=== PATIENT | male | born 1955 | race Caucasian/White ===

== ENCOUNTER 2017-03-02 22:36 | Emergency (ER) | payer OTHER ==
[~2017-03-02 22:36] MED LIST: AMLODIPINE BESY10 MG PO; ASPIRIN ADULT L81 M1 PO; CARBAMAZEPINE200 M2 PO; KEPPRA500 MG PO
--- NOTE | 2017-03-03 00:41 | DIAGNOSTIC IMAGING REPORT ---
PROCEDURE: CT HEAD WITHOUT CONTRAST INDICATION: TRAUMA/INJURY TECHNIQUE: Noncontrast axial images with sagittal and coronal reformations. COMPARISON: Compared to a head CT on 03/30/2015. FINDINGS: There is an acute 7 cm x 0.9 cm extra-axial left lateral frontal hematoma (epidural or subdural hematoma, or combination thereof). No evidence of skull fracture. Status post right frontal temporal craniotomy with resection of the anterior temporal lobe. 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 Brain and ventricles are otherwise normal. No evidence of hemorrhage. There is a mildly impacted comminuted left tripod orbital and facial fracture. This is associated moderate fluid and blood in the left maxillary sinus. Sinuses are otherwise normal. IMPRESSION: 1. There is an acute 7 cm x 0.9 cm left frontal extra-axial hematoma (epidural or subdural hematoma, or combination thereof). 2. Status post right frontal temporal craniotomy with resection of the right anterior temporal lobe. 3. Mild old small vessel disease. 4. There is a mildly impacted left facial/orbital tripod fracture. 5.. Findings discussed with Dr. Lj Agrawal at (03/03/2017, 0025 hours). All CT scans at this facility use dose modulation, iterative reconstruction, and/or weight-based dosing when appropriate to reduce radiation dose to as low as reasonably achievable.
--- NOTE | 2017-03-03 01:05 | ED CLINICAL REPORT ---
Clinical Report - Physicians/Mid Levels [facility] [address] [place] [address] 03/02/2017 22:36 Patient: ELIO HERNANDEZ Time Seen: 22:55. Arrived- By ambulance. Historian- patient, EMS personnel and spouse. History limited by intoxication. Physical Exam limited by intoxication. HISTORY OF PRESENT ILLNESS Location of injuries- head. Chief Complaint: FALL. The injury occurred today. Occurred at home. Fell and landed on a hard surface; lost balance. The patient denies pain and complains of mild pain. The patient sustained a blow to the head and had uncertain duration loss of consciousness. REVIEW OF SYSTEMS No chills, fever, sweats, calf pain or chest pain. No cough, difficulty breathing, pedal edema, palpitations or abdominal pain. No constipation, diarrhea, nausea, vomiting or urinary problems. All systems otherwise negative, except as recorded above. 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 Tetanus immunization status is unknown. Problems: Depression. Hepatitis. Cancer. Seizure. Hypertension. Additional Surgeries: Brain surgery x2. Kidney removal. Tonsillectomy. Medications: Melatonin Oral. ASA Oral 81 mg, daily. AmLODIPine Besylate Oral (Tablet 5 mg) 1 tablet, daily. CarBAMazepine ER Oral (Capsule Extended Release 12 Hour 200 mg) 1 capsule, Twice Daily. LevETIRAcetam Oral (Tablet 1000 mg) 1 tablet, 2x a day. Allergies: No Known Drug Allergy. SOCIAL HISTORY Heavy alcohol use; consumes a large amount of liquor daily. Last drink was just prior to arrival. Patient is a longstanding alcoholic. Under the influence in E.D. He lives with spouse. FAMILY HISTORY Denies family medical history. ADDITIONAL NOTES The nursing notes have been reviewed. PHYSICAL EXAM Vital Signs: 03/02/2017 22:48 BP: 141/80. HR: 87. RR: 18. O2 saturation: 99%. Temp: 98 F. Pain level now: 0/10. Have been reviewed. Appearance: Alert. Head: Forehead: multiple small abrasions. Eyes: Pupils equal, round and reactive to light. EOM intact. Left periorbital area: moderate swelling, subcutaneous 1.5 cm horizontal laceration and small ecchymosis of the lateral aspect and supraorbital area of the periorbital area. SEE LACERATION PROCEDURE NOTE #1. No entrapment of extraocular muscles or gaze palsy. ENT: No dental injury. Pharynx normal. Neck: Painless ROM. Non-tender. No vertebral tenderness. CVS: Heart sounds normal. Respiratory: Breath sounds normal. Abdomen: No visible injury. Soft and nontender. Bowel sounds normal. No organomegaly. No mass. Skin: Skin warm and dry. Extremities: Pelvis stable. No lower extremity edema. LABS, X-RAYS, AND EKG CT Head: There is sinus opacification involving the left maxillary sinus. (surgical changes R L extra axial bleed - epidural vs subdural). The study was interpreted contemporaneously by me and discussed with the radiologist. Laboratory Tests: CBC w Diff: (MANJINDER: 03/02/2017 23:20) ( [facility] 03/02/2017 23:37) Final results Test Result Flag Units (Reference) WHITE BLOOD COUNT 9.5 K/uL (4.5-11.5) RED BLOOD COUNT 4.49 L M/uL (4.50-5.90) HEMOGLOBIN 14.3 gm/dL (13.5-17.5) HEMATOCRIT 43.8 % (41.0-53.0) MEAN CELL VOLUME 98 fL (80-100) MEAN CORPUSCULAR HGB 32 pg (26-34) MEAN CORPUSCULAR HGB CONC 33 g/dL (31-37) RED CELL DISTRIBUTION WIDTH 14.0 % (11.6-14.8) PLATELET COUNT 287 K/uL (150-400) LYMPH % 15.5 L % (25-40) MONO % 7.8 % (3-14) GRANULOCYTE % 76.7 PT with INR: (MANJINDER: 03/02/2017 23:20) ( [facility] 03/02/2017 23:45) Final results Test Result Flag Units (Reference) INR 0.9 (0.8-1.2) Low Intensity Therapy: INR 1.5-2.0 PT range 18.5-23.1Mod.Intensity Therapy: INR 2.0-3.0 PT range 23.1-31.5High Intensity Therapy: INR 2.5-3.5 PT range 27.4-35.5High Intensity Therapy 2: INR 3.0-4.0 PT range 31.5-39.3 APTT 26 SECONDS (24-34) [id number]: (MANJINDER: 03/02/2017 23:20) ( RigRcvd 03/03/2017 00:02) Final results Test Result Flag Units (Reference) CARBAMAZEPINE/TEGRETOL 7.2 ug/mL (4.0-12.0) CMP: (MANJINDER: 03/02/2017 23:20) ( RigRcvd 03/02/2017 23:49) Final results Test Result Flag Units (Reference) GLUCOSE 116 H mg/dL (70-110) BUN 12 mg/dL (7-18) CREATININE 0.8 mg/dL (0.6-1.3) Estimated GFR >60 mL/min Estimated GFR- >60 mL/min Note: Persistent reduction over 3 months in eGFR<60 mL/min/1.73 m2 defines CKD. Patients with eGFR values>=60 mL/min/1.73 m2 may also have CKD if evidence ofpersistent proteinuria. Additional information may be foundat [email or web address]. SODIUM 142 mmol/L (136-145) POTASSIUM 4.4 mmol/L (3.5-5.1) CHLORIDE 105 mmol/L (98-107) CARBON DIOXIDE 26 mmol/L (21-32) CALCIUM 8.5 mg/dL (8.5-10.1) TOTAL PROTEIN 7.9 g/dL (6.4-8.2) ALBUMIN 3.3 g/dL (3.3-5.0) BILIRUBIN, TOTAL 0.6 mg/dL (0.0-1.0) ALKALINE PHOSPHATASE 118 H U/L (46-116) AST (SGOT) 141 H U/L (15-37) ALT (SGPT) 207 H U/L (12-78) LIPASE 397 H U/L (73-393) AMYLASE 62 U/L (25-115) ETHYL ALCOHOL 151 H mg/dL (3-10) . PROGRESS AND PROCEDURES Laceration Repair: Location: left eyebrow and left cheek. Time-out completed immediately before the procedure. Length: 2.0cm. Complexity: simple (closed with tissue adhesive). Distal neuro/vascular/tendon status normal. Prepped with Hibiclens. Wound explored and cleansed. Closure of superficial layer. Skin adhesive used. Post-procedure: he is stable and there are no complications. Bleeding is controlled and neuro-vascular status is intact distal to the wound. Tetanus immunization given. Course of Care: Case was discussed with the controlling physician at [facility]. He reports that none of their facilities will be able to manage this patient. Therefore he recommends the patient be transferred to [facility]. Patient is stable. Consult obtained. Dr. Borjas - Trauma / ER at [facility]. Case discussed. Phone consult only. Will see patient in the hospital. Patient/family counseled. Old medical records ordered. Disposition: Transferred. CLINICAL IMPRESSION Head injury. (acute 7 cm x 0.9 cm left frontal extra-axial hematoma (epidural or subdural hematoma, or combination thereof).). Alcoholic liver disease. Superficial laceration to the left periorbital area. Facial fracture (mildly impacted left facial/orbital tripod fracture.). Laceration. Alcohol intoxication. Superficial laceration to left eyebrow. (Electronically signed by Lj Agrawal MD 03/03/2017 9:40)
--- NOTE | 2017-03-03 01:05 | ED CLINICAL REPORT ---
Clinical Report - Physicians/Mid Levels [facility] [address] [place] [address] 03/02/2017 22:36 Patient: ELIO HERNANDEZ Time Seen: 22:55. Arrived- By ambulance. Historian- patient, EMS personnel and spouse. History limited by intoxication. Physical Exam limited by intoxication. HISTORY OF PRESENT ILLNESS Location of injuries- head. Chief Complaint: FALL. The injury occurred today. Occurred at home. Fell and landed on a hard surface; lost balance. The patient denies pain and complains of mild pain. The patient sustained a blow to the head and had uncertain duration loss of consciousness. REVIEW OF SYSTEMS No chills, fever, sweats, calf pain or chest pain. No cough, difficulty breathing, pedal edema, palpitations or abdominal pain. No constipation, diarrhea, nausea, vomiting or urinary problems. All systems otherwise negative, except as recorded above. 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 Tetanus immunization status is unknown. Problems: Depression. Hepatitis. Cancer. Seizure. Hypertension. Additional Surgeries: Brain surgery x2. Kidney removal. Tonsillectomy. Medications: Melatonin Oral. ASA Oral 81 mg, daily. AmLODIPine Besylate Oral (Tablet 5 mg) 1 tablet, daily. CarBAMazepine ER Oral (Capsule Extended Release 12 Hour 200 mg) 1 capsule, Twice Daily. LevETIRAcetam Oral (Tablet 1000 mg) 1 tablet, 2x a day. Allergies: No Known Drug Allergy. SOCIAL HISTORY Heavy alcohol use; consumes a large amount of liquor daily. Last drink was just prior to arrival. Patient is a longstanding alcoholic. Under the influence in E.D. He lives with spouse. FAMILY HISTORY Denies family medical history. ADDITIONAL NOTES The nursing notes have been reviewed. PHYSICAL EXAM Vital Signs: 03/02/2017 22:48 BP: 141/80. HR: 87. RR: 18. O2 saturation: 99%. Temp: 98 F. Pain level now: 0/10. Have been reviewed. Appearance: Alert. Head: Forehead: multiple small abrasions. Eyes: Pupils equal, round and reactive to light. EOM intact. Left periorbital area: moderate swelling, subcutaneous 1.5 cm horizontal laceration and small ecchymosis of the lateral aspect and supraorbital area of the periorbital area. SEE LACERATION PROCEDURE NOTE #1. No entrapment of extraocular muscles or gaze palsy. ENT: No dental injury. Pharynx normal. Neck: Painless ROM. Non-tender. No vertebral tenderness. CVS: Heart sounds normal. Respiratory: Breath sounds normal. Abdomen: No visible injury. Soft and nontender. Bowel sounds normal. No organomegaly. No mass. Skin: Skin warm and dry. Extremities: Pelvis stable. No lower extremity edema. LABS, X-RAYS, AND EKG CT Head: There is sinus opacification involving the left maxillary sinus. (surgical changes R L extra axial bleed - epidural vs subdural). The study was interpreted contemporaneously by me and discussed with the radiologist. Laboratory Tests: CBC w Diff: (MANJINDER: 03/02/2017 23:20) ( [facility] 03/02/2017 23:37) Final results Test Result Flag Units (Reference) WHITE BLOOD COUNT 9.5 K/uL (4.5-11.5) RED BLOOD COUNT 4.49 L M/uL (4.50-5.90) HEMOGLOBIN 14.3 gm/dL (13.5-17.5) HEMATOCRIT 43.8 % (41.0-53.0) MEAN CELL VOLUME 98 fL (80-100) MEAN CORPUSCULAR HGB 32 pg (26-34) MEAN CORPUSCULAR HGB CONC 33 g/dL (31-37) RED CELL DISTRIBUTION WIDTH 14.0 % (11.6-14.8) PLATELET COUNT 287 K/uL (150-400) LYMPH % 15.5 L % (25-40) MONO % 7.8 % (3-14) GRANULOCYTE % 76.7 PT with INR: (MANJINDER: 03/02/2017 23:20) ( [facility] 03/02/2017 23:45) Final results Test Result Flag Units (Reference) INR 0.9 (0.8-1.2) Low Intensity Therapy: INR 1.5-2.0 PT range 18.5-23.1Mod.Intensity Therapy: INR 2.0-3.0 PT range 23.1-31.5High Intensity Therapy: INR 2.5-3.5 PT range 27.4-35.5High Intensity Therapy 2: INR 3.0-4.0 PT range 31.5-39.3 APTT 26 SECONDS (24-34) [id number]: (MANJINDER: 03/02/2017 23:20) ( Tng[facility]cvd 03/03/2017 00:02) Final results Test Result Flag Units (Reference) CARBAMAZEPINE/TEGRETOL 7.2 ug/mL (4.0-12.0) CMP: (MANJINDER: 03/02/2017 23:20) ( TngRcvd 03/02/2017 23:49) Final results Test Result Flag Units (Reference) GLUCOSE 116 H mg/dL (70-110) BUN 12 mg/dL (7-18) CREATININE 0.8 mg/dL (0.6-1.3) Estimated GFR >60 mL/min Estimated GFR- >60 mL/min Note: Persistent reduction over 3 months in eGFR<60 mL/min/1.73 m2 defines CKD. Patients with eGFR values>=60 mL/min/1.73 m2 may also have CKD if evidence ofpersistent proteinuria. Additional information may be foundat [email or web address]. SODIUM 142 mmol/L (136-145) POTASSIUM 4.4 mmol/L (3.5-5.1) CHLORIDE 105 mmol/L (98-107) CARBON DIOXIDE 26 mmol/L (21-32) CALCIUM 8.5 mg/dL (8.5-10.1) TOTAL PROTEIN 7.9 g/dL (6.4-8.2) ALBUMIN 3.3 g/dL (3.3-5.0) BILIRUBIN, TOTAL 0.6 mg/dL (0.0-1.0) ALKALINE PHOSPHATASE 118 H U/L (46-116) AST (SGOT) 141 H U/L (15-37) ALT (SGPT) 207 H U/L (12-78) LIPASE 397 H U/L (73-393) AMYLASE 62 U/L (25-115) ETHYL ALCOHOL 151 H mg/dL (3-10) . PROGRESS AND PROCEDURES Laceration Repair: Location: left eyebrow and left cheek. Time-out completed immediately before the procedure. Length: 2.0cm. Complexity: simple (closed with tissue adhesive). Distal neuro/vascular/tendon status normal. Prepped with Hibiclens. Wound explored and cleansed. Closure of superficial layer. Skin adhesive used. Post-procedure: he is stable and there are no complications. Bleeding is controlled and neuro-vascular status is intact distal to the wound. Tetanus immunization given. Course of Care: Case was discussed with the controlling physician at [facility]. He reports that none of their facilities will be able to manage this patient. Therefore he recommends the patient be transferred to [facility]. Patient is stable. Consult obtained. Dr. Borjas - Trauma / ER at [facility]. Case discussed. Phone consult only. Will see patient in the hospital. Patient/family counseled. Old medical records ordered. Disposition: Transferred. CLINICAL IMPRESSION Head injury. (acute 7 cm x 0.9 cm left frontal extra-axial hematoma (epidural or subdural hematoma, or combination thereof).). Alcoholic liver disease. Superficial laceration to the left periorbital area. Facial fracture (mildly impacted left facial/orbital tripod fracture.). Laceration. Alcohol intoxication. Superficial laceration to left eyebrow. (Electronically signed by Lj Agrawal MD 03/03/2017 9:40)
--- NOTE | 2017-03-03 01:06 | ED NURSING NOTES ---
Clinical Report - Nurses [facility] [address] [place] [address] 03/02/2017 22:36 Patient: ELIO HERNANDEZ TRIAGE Triage time 22:48. Acuity: LEVEL 3. Chief Complaint: FALL while walking. Alert. ALEJANDRO COMA SCORE: Alejandro Coma Scale: 14- eyes open spontaneously (4); best verbal response- disoriented (4); best motor response- obeys commands (6). --22:56 Genesis Stevenson R.N. 22:48 03/02/17. BP: 141/80. HR: 87. RR: 18. O2 saturation: 99% on room air. Temp: 98 F. Pain level now: 0/10. --22:56 Genesis Stevenson R.N. Weight: 72.5 kg stated. Height/Length: 72 inches Per Patient. BMI: 21.7. --22:54 Genesis Stevenson R.N. Medications AmLODIPine Besylate Oral (Tablet 5 mg) 1 tablet, daily. CarBAMazepine ER Oral (Capsule Extended Release 12 Hour 200 mg) 1 capsule, Twice Daily. LevETIRAcetam Oral (Tablet 1000 mg) 1 tablet, 2x a day. --22:51 Genesis Stevenson R.N. ASA Oral 81 mg, daily. --22:52 Genesis Stevenson R.N. Melatonin Oral. --22:52 Genesis Stevenson R.N. Allergies No Known Drug Allergy. --22:51 Genessi Stevenson R.N. History Arrived by private vehicle. Primary physician (Yocasta). ( reports pt has been drinking heavily for past few weeks and has had repeated falls. Today reports that she was at work and came home around 1800 & at 2000 she noticed that he had blood on face and left eye was swollen so she brought him in.). This occurred today. SOCIAL HX: Heavy tobacco smoker (cigarette)- less than 1 pack per day. Heavy alcohol use. --22:56 Genesis Stevenson R.N. PROBLEMS: Cancer. Hypertension. Seizure. --22:52 Genesis Stevenson R.N. Depression. Hepatitis. --22:53 Genesis Stevenson R.N. Interventions ID band on patient. To treatment room. --22:56 Genesis Stevenson R.N. PHYSICAL ASSESSMENT To room via wheelchair. Patient gowned. GENERAL / NEURO / PSYCH: Alert. Appears in no acute distress. The patient is disoriented to time. HEENT: Head: laceration present in the left forehead. RESPIRATORY: Respirations not labored. CVS: Capillary refill less than 2 seconds. SKIN: Skin is warm and dry. --22:57 Genesis Stevenson R.N. NURSING PROGRESS NOTES Two patient identifiers checked. Call light placed in reach. Side rails up x 1. Bed placed in lowest position. Brakes of bed on. --:57 Genesis Stevenson R.N. Patient ready for evaluation- chart flagged. --22:57 Genesis Stevenson R.N. ( pt states "I have brain cancer so I fall a lot", pt asked if he thinks its the cancer causing the falls or the alcohol. pt replies with "oh, yeah, probably the alcohol". Pt denies falls while sober.). --23:00 Genesis Stevenson R.N. 23:15. Wound cleansed with sterile water and chlorhexidine. --23:31 Ariadne Fernandez 23:20 03/02/2017 Site #1 started via IV in the right antecubital space with an 20g angiocath, with aseptic technique and good blood return; one attempt. Blood drawn: rainbow set. Labeled in the presence of the patient and sent to the lab. Saline lock flushed with 10 mL saline. --23:32 Fern Herman R.N. 23:28 03/02/2017 Started bag #1 1000 mL IV Fluids IV NS (Saline); at 500 mL/hr over 1 hour(s) via site #1 via IV pump. Allergies verified and confirmed 5 rights. IV patency established. IV site checked: no pain, redness, or swelling. IV flushed thoroughly pre- and post-medication administration. --23:34 Fern Herman R.N. Patient transported to [place] by stretcher with tech. --23:47 Genesis Stevenson R.N. 00:01 03/03/2017 TDAP IM 0.5 mL given. (Lot#: [id number], expiration date: 01/29/2019, Ict Trainer: [employer]). Given in the right deltoid. Allergies verified and confirmed 5 rights. Vaccine information statement provided to the patient. --00:03 Genesis Stevenson R.N. 00:01 03/03/2017 IV Fluids IV NS via IV site #1 Rate Changed: bag #1 increased to 999 mL/hr via IV pump. IV patency established. IV site checked: no pain, redness, or swelling. IV flushed thoroughly. Confirmed 5 Rights. --00:05 Genesis Stevenson R.N. 00:19 03/03/2017 IV Fluids IV NS via IV site #1 Rate Changed: bag #1 decreased to 125 mL/hr via IV pump. IV patency established. IV site checked: no pain, redness, or swelling. IV flushed thoroughly. Confirmed 5 Rights (500ml bolus complete.). --00:19 Genesis Stevenson R.N. ( images pushed to boni hernandez, facesheet faxed). --00:55 Silvia Cavanaugh ( pt given urinal, per request to use restroom. Pt's at bedside to assist.). --01:52 Genesis Stevenson R.N. 02:23 03/03/17. BP: 148/73. HR: 79. RR: 15. O2 saturation: 100% on room air. --02:26 Genesis Stevenson R.N. Ambulance transport form signed (signed by , per pts request.). --02:33 Genesis Stevenson R.N. Patient ID band checked for patient name and birthdate: patient confirmed urine collected with return of nancy-colored urine; sample sent to lab. Specimen labeled in the presence of the patient. --02:59 Genesis Stevenson R.N. 03:00 03/03/2017 IV Fluids IV NS Discontinued: bag #1 discontinued upon transfer. Total amount infused: 800 mL. IV patency established. IV site checked: no pain, redness, or swelling. IV flushed thoroughly. --03:01 Genesis Stevenson R.N. DISPOSITION / DISCHARGE 02:44 03/03/17. BP: 143/79. HR: 82. RR: 15. O2 saturation: 95% on room air. Pain level now: 0/10. --02:44 Genesis Stevenson R.N. Report was given via a fax. Report included patient's care, treatment, medications, reviewed medication reconcilliation, and condition (including any recent changes or anticipated changes). (to [facility]). --02:45 Genesis Stevenson R.N. Transferred to [facility]. Summary of care provided to transport team and EMS via paper. --02:59 Genesis Stevenson R.N. 03:05 03/03/2017 Site #[address] upon transfer. Flushed with 10 mL saline; flushes easily. --03:05 Genesis Stevenson R.N. Departure time: 03:12. --03:12 Genesis Stevenson R.N. Locked/Released at 03/03/2017 4:51 by Genesis Stevenson R.N.
--- NOTE | 2017-03-03 01:06 | ED ORDER SUMMARY ---
..... Patient: ELIO HERNANDEZ OrderSheet [facility] VisitID: [id number] [place] [address] 61y, M Registration Date/Time: 03/02/2017 ORDER SHEET Weight: 72.5 kg (stated) Allergies: No Known Drug Allergy GENERAL ORDERS: CT Head wo Cont Urgent (23:18 03/02/2017 Tnoi BAÑUELOS) (Ack 23:19 LMuller) (0:03 RCollier R.N.) CBC w Diff Urgent (23:18 03/02/2017 Toni BAÑUELOS) (Ack 23:19 LMuller) (23:31 CBradburn R.N.) CMP Urgent (23:18 03/02/2017 Toni BAÑUELOS) (Ack 23:19 LMuller) (23:31 CBradburn R.N.) PT with INR Urgent (23:18 03/02/2017 Toni BAÑUELOS) (Ack 23:19 LMuller) (23:31 CBradburn R.N.) PTT Urgent (23:18 03/02/2017 Toni BAÑUELOS) (Ack 23:19 LMuller) (23:31 CBradburn R.N.) Amylase Urgent (23:18 03/02/2017 Toni BAÑUELOS) (Ack 23:19 LMuller) (23:31 CBradburn R.N.) Lipase Urgent (23:18 03/02/2017 Toni BAÑUELOS) (Ack 23:19 LMuller) (23:31 CBradburn R.N.) Ethyl Alcohol Urgent (23:18 03/02/2017 Toni BAÑUELOS) (Ack 23:19 LMuller) (23:31 ELISEradburn R.N.) Carbamazepine (Tegretol) Urgent (23:49 03/02/2017 Toni BAÑUELOS) (0:19 RCollier R.N.) MEDICATION ORDERS: Tdap IM 0.5 mL (NOW) (23:48 03/02/2017 Toni BAÑUELOS) (Ack 23:51 RCollier R.N.) (0:03 RCollier R.N.) IV FLUIDS: IV NS with Folic Acid 1 mg/L, Multivitamin Concentrate Intravenous 1 amp/L, Thiamine HCl 100 mg/L: initial bolus 500 mL (1000 mL/hr), then 125 mL/hr for 4h (NOW); Urgent (23:17 03/02/2017 Toni BAÑUELOS) (Ack 23:18 Gaye East) (23:34 Jules East) ORDER SHEET NOTES: [Electronically signed by Genesis Stevenson R.N. (04:51 03/03/2017)] [Electronically signed by Lj Agrawal MD (09:40 03/03/2017)] [Electronically locked/signed by Genesis Stevenson R.N. (04:51 03/03/2017)]
--- NOTE | 2017-03-03 01:06 | ED ORDER SUMMARY ---
..... Patient: ELIO HERNANDEZ OrderSheet [facility] VisitID: [id number] [place] [address] 61y, M Registration Date/Time: 03/02/2017 ORDER SHEET Weight: 72.5 kg (stated) Allergies: No Known Drug Allergy GENERAL ORDERS: CT Head wo Cont Urgent (23:18 03/02/2017 Toni BAÑUELOS) (Ack 23:19 LMuller) (0:03 RCollier R.N.) CBC w Diff Urgent (23:18 03/02/2017 Toni BAÑUELOS) (Ack 23:19 LMuller) (23:31 CBradburn R.N.) CMP Urgent (23:18 03/02/2017 Toni BAÑUELOS) (Ack 23:19 LMuller) (23:31 CBradburn R.N.) PT with INR Urgent (23:18 03/02/2017 Toni BAÑUELOS) (Ack 23:19 LMuller) (23:31 CBradburn R.N.) PTT Urgent (23:18 03/02/2017 Toni BAÑUELOS) (Ack 23:19 LMuller) (23:31 CBradburn R.N.) Amylase Urgent (23:18 03/02/2017 Toni BAÑUELOS) (Ack 23:19 LMuller) (23:31 CBradburn R.N.) Lipase Urgent (23:18 03/02/2017 Toni BAÑUELOS) (Ack 23:19 LMuller) (23:31 CBradburn R.N.) Ethyl Alcohol Urgent (23:18 03/02/2017 Toni BAÑUELOS) (Ack 23:19 LMuller) (23:31 ELISEradburn R.N.) Carbamazepine (Tegretol) Urgent (23:49 03/02/2017 Toni BAÑUELOS) (0:19 RCollier R.N.) MEDICATION ORDERS: Tdap IM 0.5 mL (NOW) (23:48 03/02/2017 Toni BAÑUELOS) (Ack 23:51 RCollier R.N.) (0:03 RCollier R.N.) IV FLUIDS: IV NS with Folic Acid 1 mg/L, Multivitamin Concentrate Intravenous 1 amp/L, Thiamine HCl 100 mg/L: initial bolus 500 mL (1000 mL/hr), then 125 mL/hr for 4h (NOW); Urgent (23:17 03/02/2017 Toni BAÑUELOS) (Ack 23:18 Gaye East) (23:34 Jules East) ORDER SHEET NOTES: [Electronically signed by Genesis Stevenson R.N. (04:51 03/03/2017)] [Electronically signed by Lj Agrawal MD (09:40 03/03/2017)] [Electronically locked/signed by Genesis Stevenson R.N. (04:51 03/03/2017)]
--- NOTE | 2017-03-03 01:06 | ED NURSING NOTES ---
Clinical Report - Nurses [facility] [address] [place] [address] 03/02/2017 22:36 Patient: LEIO HERNANDEZ TRIAGE Triage time 22:48. Acuity: LEVEL 3. Chief Complaint: FALL while walking. Alert. ALEJANDRO COMA SCORE: Alejandro Coma Scale: 14- eyes open spontaneously (4); best verbal response- disoriented (4); best motor response- obeys commands (6). --22:56 Genesis Stevenson R.N. 22:48 03/02/17. BP: 141/80. HR: 87. RR: 18. O2 saturation: 99% on room air. Temp: 98 F. Pain level now: 0/10. --22:56 Genesis Stevenson R.N. Weight: 72.5 kg stated. Height/Length: 72 inches Per Patient. BMI: 21.7. --22:54 Genesis Stevenson R.N. Medications AmLODIPine Besylate Oral (Tablet 5 mg) 1 tablet, daily. CarBAMazepine ER Oral (Capsule Extended Release 12 Hour 200 mg) 1 capsule, Twice Daily. LevETIRAcetam Oral (Tablet 1000 mg) 1 tablet, 2x a day. --22:51 Genesis Stevenson R.N. ASA Oral 81 mg, daily. --22:52 Genesis Stevenson R.N. Melatonin Oral. --22:52 Genesis Stevenson R.N. Allergies No Known Drug Allergy. --22:51 Gneesis Stevenson R.N. History Arrived by private vehicle. Primary physician (Yocasta). ( reports pt has been drinking heavily for past few weeks and has had repeated falls. Today reports that she was at work and came home around 1800 & at 2000 she noticed that he had blood on face and left eye was swollen so she brought him in.). This occurred today. SOCIAL HX: Heavy tobacco smoker (cigarette)- less than 1 pack per day. Heavy alcohol use. --22:56 Genesis Stevenson R.N. PROBLEMS: Cancer. Hypertension. Seizure. --22:52 Genesis Stevenson R.N. Depression. Hepatitis. --22:53 Genesis Stevenson R.N. Interventions ID band on patient. To treatment room. --22:56 Genesis Stevenson R.N. PHYSICAL ASSESSMENT To room via wheelchair. Patient gowned. GENERAL / NEURO / PSYCH: Alert. Appears in no acute distress. The patient is disoriented to time. HEENT: Head: laceration present in the left forehead. RESPIRATORY: Respirations not labored. CVS: Capillary refill less than 2 seconds. SKIN: Skin is warm and dry. --22:57 Genesis Stevenson R.N. NURSING PROGRESS NOTES Two patient identifiers checked. Call light placed in reach. Side rails up x 1. Bed placed in lowest position. Brakes of bed on. --:57 Genesis Stevenson R.N. Patient ready for evaluation- chart flagged. --22:57 Genesis Stevenson R.N. ( pt states "I have brain cancer so I fall a lot", pt asked if he thinks its the cancer causing the falls or the alcohol. pt replies with "oh, yeah, probably the alcohol". Pt denies falls while sober.). --23:00 Genesis Stevenson R.N. 23:15. Wound cleansed with sterile water and chlorhexidine. --23:31 Ariadne Fernandez 23:20 03/02/2017 Site #1 started via IV in the right antecubital space with an 20g angiocath, with aseptic technique and good blood return; one attempt. Blood drawn: rainbow set. Labeled in the presence of the patient and sent to the lab. Saline lock flushed with 10 mL saline. --23:32 Fern Herman R.N. 23:28 03/02/2017 Started bag #1 1000 mL IV Fluids IV NS (Saline); at 500 mL/hr over 1 hour(s) via site #1 via IV pump. Allergies verified and confirmed 5 rights. IV patency established. IV site checked: no pain, redness, or swelling. IV flushed thoroughly pre- and post-medication administration. --23:34 Fern Herman R.N. Patient transported to [place] by stretcher with tech. --23:47 Genesis Stevenson R.N. 00:01 03/03/2017 TDAP IM 0.5 mL given. (Lot#: [id number], expiration date: 01/29/2019, [employer]: [employer]). Given in the right deltoid. Allergies verified and confirmed 5 rights. Vaccine information statement provided to the patient. --00:03 Genesis Stevenson R.N. 00:01 03/03/2017 IV Fluids IV NS via IV site #1 Rate Changed: bag #1 increased to 999 mL/hr via IV pump. IV patency established. IV site checked: no pain, redness, or swelling. IV flushed thoroughly. Confirmed 5 Rights. --00:05 Genesis Stevenson R.N. 00:19 03/03/2017 IV Fluids IV NS via IV site #1 Rate Changed: bag #1 decreased to 125 mL/hr via IV pump. IV patency established. IV site checked: no pain, redness, or swelling. IV flushed thoroughly. Confirmed 5 Rights (500ml bolus complete.). --00:19 Genesis Stevenson R.N. ( images pushed to boni hernandez, facesheet faxed). --00:55 Silvia Cavanaugh ( pt given urinal, per request to use restroom. Pt's at bedside to assist.). --01:52 Genesis Stevenson R.N. 02:23 03/03/17. BP: 148/73. HR: 79. RR: 15. O2 saturation: 100% on room air. --02:26 Genesis Stevenson R.N. Ambulance transport form signed (signed by , per pts request.). --02:33 Genesis Stevenson R.N. Patient ID band checked for patient name and birthdate: patient confirmed urine collected with return of nancy-colored urine; sample sent to lab. Specimen labeled in the presence of the patient. --02:59 Genesis Stevenson R.N. 03:00 03/03/2017 IV Fluids IV NS Discontinued: bag #1 discontinued upon transfer. Total amount infused: 800 mL. IV patency established. IV site checked: no pain, redness, or swelling. IV flushed thoroughly. --03:01 Genesis Stevenson R.N. DISPOSITION / DISCHARGE 02:44 03/03/17. BP: 143/79. HR: 82. RR: 15. O2 saturation: 95% on room air. Pain level now: 0/10. --02:44 Genseis Stevenson R.N. Report was given via a fax. Report included patient's care, treatment, medications, reviewed medication reconcilliation, and condition (including any recent changes or anticipated changes). (to [facility]). --02:45 Genesis Stevenson R.N. Transferred to [facility]. Summary of care provided to transport team and EMS via paper. --02:59 Genesis Stevenson R.N. 03:05 03/03/2017 Site #[address] upon transfer. Flushed with 10 mL saline; flushes easily. --03:05 Genesis Stevenson R.N. Departure time: 03:12. --03:12 Genesis Stevenson R.N. Locked/Released at 03/03/2017 4:51 by Genesis Stevenson R.N.
--- NOTE | 2017-03-03 09:41 | ED DISCHARGE INSTRUCTIONS ---
Patient: ELIO HERNANDEZ General Instructions [facility] VisitID: [id number] [address] [place] [address] 61y, M Registration Date/Time: 03/02/2017 Head injury. (acute 7 cm x 0.9 cm left frontal extra-axial hematoma (epidural or subdural hematoma, or combination thereof).). Alcoholic liver disease. Superficial laceration to the left periorbital area. Facial fracture (mildly impacted left facial/orbital tripod fracture.). Laceration. Alcohol intoxication. Superficial laceration to left eyebrow. (Electronically signed by jL Agrawal MD 03/03/2017 9:40)
--- NOTE | 2017-03-03 09:41 | ED MAR SUMMARY ---
..... Medication Administration Record [facility] [address] [place] [address] Patient: ELIO HERNANDEZ Visit ID: [id number] 61y, M Weight: 72.5 kg Height/Length: 72 in BMI: 21.7 ALLERGIES: No Known Drug Allergy Start 23:28 03/02/2017 Fern Herman R.N., Stop 03:00 03/03/2017 Genesis Stevenson R.N. Medication Administered: IV NS (SALINE), Dose: IV Fluids over 1 hour(s), Rate: 500 mL/hr, Dispensed: 1000 mL bag, Site: #1 right AC. Medication Ordered: IV NS with Folic Acid 1 mg/L, Multivitamin Concentrate Intravenous 1 amp/L, Thiamine HCl 100 mg/L: initial bolus 500 mL (1000 mL/hr), then 125 mL/hr for 4h (NOW); Urgent. Given 00:01 03/03/2017 Genesis Stevenson R.N. Medication Administered: TDAP [IM], Dose: 0.5 mL IM. Medication Ordered: Tdap IM 0.5 mL (NOW).
--- NOTE | 2017-03-03 09:41 | ED MED RECONCILIATION SUMMARY ---
Patient: ELIO HERNANDEZ Medication Reconciliation Report [facility] VisitID: [id number] [place] [address] 61y, M Registration Date/Time: 03/02/2017 Weight: 72.5 kg Height/Length: 72 in. BMI: 21.7 ALLERGIES: No Known Drug Allergy The patient's Home Medications are listed below: THE FOLLOWING MEDICATIONS NEED TO BE RECONCILED: AmLODIPine Besylate Oral (5 mg) 1 tablet, daily ASA Oral 81 mg, daily CarBAMazepine ER Oral (200 mg) 1 capsule, Twice Daily LevETIRAcetam Oral (1000 mg) 1 tablet, 2x a day Melatonin Oral The source(s) of the original Home Medication information: Not obtained. The following Medications were given to the patient in the Emergency Department: IV NS IV Fluids bolus 0, then 500 mL/hr, administered: 03/02/2017 11:28:00 PM TDAP [IM] IM 0.5 mL, administered: 03/03/2017 12:01:00 AM The following Medications were prescribed to the patient: None.
--- NOTE | 2017-03-03 09:41 | ED MAR SUMMARY ---
..... Medication Administration Record [facility] [address] [place] [address] Patient: ELIO HERNANDEZ Visit ID: [id number] 61y, M Weight: 72.5 kg Height/Length: 72 in BMI: 21.7 ALLERGIES: No Known Drug Allergy Start 23:28 03/02/2017 Fern Herman R.N., Stop 03:00 03/03/2017 Genesis Stevenson R.N. Medication Administered: IV NS (SALINE), Dose: IV Fluids over 1 hour(s), Rate: 500 mL/hr, Dispensed: 1000 mL bag, Site: #1 right AC. Medication Ordered: IV NS with Folic Acid 1 mg/L, Multivitamin Concentrate Intravenous 1 amp/L, Thiamine HCl 100 mg/L: initial bolus 500 mL (1000 mL/hr), then 125 mL/hr for 4h (NOW); Urgent. Given 00:01 03/03/2017 Genesis Stevenson R.N. Medication Administered: TDAP [IM], Dose: 0.5 mL IM. Medication Ordered: Tdap IM 0.5 mL (NOW).
--- NOTE | 2017-03-03 09:41 | ED MED RECONCILIATION SUMMARY ---
Patient: ELIO HERNANDEZ Medication Reconciliation Report [facility] VisitID: [id number] [place] [address] 61y, M Registration Date/Time: 03/02/2017 Weight: 72.5 kg Height/Length: 72 in. BMI: 21.7 ALLERGIES: No Known Drug Allergy The patient's Home Medications are listed below: THE FOLLOWING MEDICATIONS NEED TO BE RECONCILED: AmLODIPine Besylate Oral (5 mg) 1 tablet, daily ASA Oral 81 mg, daily CarBAMazepine ER Oral (200 mg) 1 capsule, Twice Daily LevETIRAcetam Oral (1000 mg) 1 tablet, 2x a day Melatonin Oral The source(s) of the original Home Medication information: Not obtained. The following Medications were given to the patient in the Emergency Department: IV NS IV Fluids bolus 0, then 500 mL/hr, administered: 03/02/2017 11:28:00 PM TDAP [IM] IM 0.5 mL, administered: 03/03/2017 12:01:00 AM The following Medications were prescribed to the patient: None.
--- NOTE | 2017-03-03 09:41 | ED DISCHARGE INSTRUCTIONS ---
Patient: ELIO HERNANDEZ General Instructions [facility] VisitID: [id number] [address] [place] [address] 61y, M Registration Date/Time: 03/02/2017 Head injury. (acute 7 cm x 0.9 cm left frontal extra-axial hematoma (epidural or subdural hematoma, or combination thereof).). Alcoholic liver disease. Superficial laceration to the left periorbital area. Facial fracture (mildly impacted left facial/orbital tripod fracture.). Laceration. Alcohol intoxication. Superficial laceration to left eyebrow. (Electronically signed by Lj Agrawal MD 03/03/2017 9:40)
== END 2017-03-03 03:00 | disposition short-term general hospital (02) ==
LOC: ED SRH 22:36
DX: S06.9X9A Unspecified intracranial injury with loss of consciousness of unspecified duration, initial encounter (principal); S02.82XA Fracture of other specified skull and facial bones, left side, initial encounter for closed fracture; S01.112A Laceration without foreign body of left eyelid and periocular area, initial encounter; K70.9 Alcoholic liver disease, unspecified; F10.129 Alcohol abuse with intoxication, unspecified; W18.39XA Other fall on same level, initial encounter; Y93.01 Activity, walking, marching and hiking; Y99.8 Other external cause status; Y92.009 Unspecified place in unspecified non-institutional (private) residence as the place of occurrence of the external cause; Z23 Encounter for immunization
CPT/HCPCS: 82708; 90100; 92010; 92095; 92235; 92530; 94001; 94060; 95059